=== PATIENT | male | born 1960 | race Two or more races ===

== ENCOUNTER 2020-05-26 16:17 | Emergency (ER) | payer SELFPAY ==
[~2020-05-26] VITALS: Ht 167.6 cm; Wt 90.7 kg
[2020-05-26] MEDS ORDERED: insulin SUBQ (16:41)
[2020-05-26 16:45] VITALS: BP 153/86
--- NOTE | 2020-05-26 16:47 | Emergency Room Report ---
History of Present Illness General Chief Complaint: Animal Bite Source: Patient Present Illness HPI 60-year-old male with history of type 2 diabetes currently taking insulin and hypertension currently taking medication here complaining of a dog bite on anterior right tib-fib that happened this morning. Reports that it was his friend's dog however is sure that the dog is immunized. Patient last tetanus shot was a year ago. No bleeding is noted. No pus drainage noted. Patient reports that he only feels pain upon palpation of the area of bite. Denies any fever and chills, calf tenderness, chest pain shortness of breath. Has not taken medication for symptom relief. Denies tingling and numbness Allergies: Coded Allergies: No Known Allergies (Unverified , 05/26/20) COVID-19 Screening Contact w/high risk pt: No Experienced COVID-19 symptoms?: No COVID-19 Testing performed TODDLER NANNY: No Patient History Past Medical History: see triage record Past Surgical History: none Pertinent Family History: none Immunizations: UTD Reviewed Nursing Documentation: PMH: Agreed; PSxH: Agreed Nursing Documentation-PMH Hx Hypertension: Yes Hx Diabetes: Yes Review of Systems All Other Systems: negative except mentioned in HPI Physical Exam Vital Signs Date Time Temp Pulse Resp B/P (MAP) Pulse Ox O2 Delivery O2 Flow Rate FiO2 05/26/20 16:37 98.1 79 16 153/86 (108) 96 Room Air Sp02 EP Interpretation: reviewed, normal General Appearance: no apparent distress, alert, GCS 15, non-toxic Head: normocephalic, atraumatic Eyes: bilateral eye normal inspection, bilateral eye PERRL ENT: hearing grossly normal, normal pharynx, no angioedema, normal voice Neck: full range of motion, supple/symm/no masses Respiratory: chest non-tender, lungs clear, normal breath sounds, speaking full sentences Cardiovascular #1: regular rate, rhythm, no edema Cardiovascular #2: 2+ dorsalis pedis (R), 2+ dorsalis pedis (L) Gastrointestinal: normal bowel sounds, non tender, soft, non-distended, no guarding, no rebound Genitourinary: no CVA tenderness Musculoskeletal: back normal, gait/station normal Neurologic: alert, motor strength/tone normal, oriented x3, sensory intact, responsive, speech normal Psychiatric: judgement/insight normal, memory normal, mood/affect normal, no suicidal/homicidal ideation Skin: other - Small puncture wound status post dog bite without any pus drainage or bleeding Lymphatic: no adenopathy Medical Decision Making PA Attestation Diagnosis and treatment plans were reviewed and discussed with my supervising physician Dr. Orta Diagnostic Impression: Primary Impression: Dog bite ER Course 60-year-old male with history of type 2 diabetes currently taking insulin and hypertension currently taking medication here complaining of a dog bite on anterior right tib-fib that happened this morning. Reports that it was his friend's dog however is sure that the dog is immunized. Patient last tetanus shot was a year ago. No bleeding is noted. No pus drainage noted. Patient reports that he only feels pain upon palpation of the area of bite. Denies any fever and chills, calf tenderness, chest pain shortness of breath. Has not taken medication for symptom relief. Denies tingling or numbness Ddx considered but are not limited to : Cellulitis, DVT, superficial infection, abscess, dog bite Vital signs: are WNL, pt. is afebrile H&PE are most consistent with: Dog bite ORDERS: Augmentin, mupirocin ointment ED INTERVENTIONS: Bacitracin, wound clean DISCHARGE: At this time pt. is stable for d/c to home. Will provide printed patient care instructions, and any necessary prescriptions. Care plan and follow up instructions have been discussed with the patient prior to discharge. Patient take medication as directed, follow primary care provider, if worsening symptoms return to the emergency room Last Vital Signs Date Time Temp Pulse Resp B/P (MAP) Pulse Ox O2 Delivery O2 Flow Rate FiO2 05/26/20 16:37 98.1 79 16 153/86 (108) 96 Room Air Disposition: HOME, SELF-CARE Condition: Stable Scripts Mupirocin* (MUPIROCIN*) 22 Gm Oint...g. 1 APPLIC TOPIC THREE TIMES A DAY, #22 GM Prov: Isaiah Voss 05/26/20 Amoxicillin/Potassium Clav 875-125* (AUGMENTIN 875-125 TABLET*) 1 Each Tablet 1 TAB ORAL TWICE A DAY for 10 Days, #20 TAB Prov: Isaiah Voss 05/26/20 Patient Instructions: Animal Bite Additional Instructions: Take medication as directed, follow-up with your primary care provider, if worsening symptoms return to the emergency room Isaiah Vsos May 26, 2020 16:47
[2020-05-26] MEDS ORDERED: MUPIROCIN22 GM TOPIC (16:48)
[2020-05-26] MEDS ORDERED: AUGMENTIN 875-1 EAC1 ORAL (16:48)
[2020-05-26 16:50] VITALS: BP 145/85
[2020-05-26] MEDS ORDERED: Bacitracin Oint UD TOPIC ONE (17:00)
== END 2020-05-26 16:50 | disposition home or self-care (01) ==
LOC: EMR 16:45
DX: S81.851A Open bite, right lower leg, initial encounter (principal); I10 Essential (primary) hypertension; W54.0XXA Bitten by dog, initial encounter; Y92.9 Unspecified place or not applicable; E11.9 Type 2 diabetes mellitus without complications; Z79.4 Long term (current) use of insulin
CPT/HCPCS: 99282